=== PATIENT | female | born 1990 | race Two or more races ===

== ENCOUNTER 2018-08-19 22:50 | Inpatient (IN) ==
[2018-08-19 23:06] VITALS: BMI 37.5
[2018-08-19 23:23] LABS: BILIRUBIN,URINE NEGATIVE (NEGATIVE); BLOOD/HEMOGLOBIN,URINE NEGATIVE (NEGATIVE); GLUCOSE, URINE NEGATIVE (NEGATIVE); KETONES,URINE 2+ (NEGATIVE); LEUKOCYTE ESTERASE ,URINE 1+ (NEGATIVE); NITRITES,URINE NEGATIVE (NEGATIVE); PROTEIN,URINE 1+ (NEGATIVE); UROBILINOGEN,URINE NORMAL (NORMAL)
[2018-08-19 23:28] LABS: APPEARANCE,URINE SLIGHTLY HAZY (CLEAR); COLOR,URINE YELLOW (YELLOW)
[2018-08-19 23:37] LABS: BACTERIA,URINE TRACE /HPF (NEGATIVE); RBC,URINE 0-2 /HPF (NONE SEEN); SQUAMOUS EPITHELIAL CELL,UR MODERATE /HPF (NEGATIVE)
[2018-08-20] MEDS ORDERED: PITOCIN IVP ONE (02:15)
[2018-08-20] MEDS ORDERED: D5LR 1L W PITOCIN 10 UNITS/L 10 UNITS/1,000 ML BAG IV PRN (02:15)
[2018-08-20] MEDS ORDERED: NUBAIN INJ 200 MG VIAL MULTIDOSE IVP PRN (02:15)
[2018-08-20] MEDS ORDERED: FENTANYL INJ 100 mcg ONE (02:30)
[2018-08-20] MEDS ORDERED: LR 1000 ML IV 1,000 ML IV ONE (02:30)
[2018-08-20] MEDS ORDERED: XYLOCAINE 1 % (PLAIN) ONE (02:30)
[2018-08-20] MEDS ORDERED: D5 1/2 NS 1L W PITOCIN 20 UNITS/L 20 UNITS/1,000 ML BAG IV ONE (02:31)
[2018-08-20] MEDS ORDERED: NUBAIN INJ 10 ONE (02:31)
[2018-08-20] MEDS ORDERED: PITOCIN ONE (02:31)
[2018-08-20] MEDS ORDERED: NAROPIN EPIDURAL 0.2% + FENTANYL 90MCG 60 ML EPI ONE (02:31)
[2018-08-20] MEDS ORDERED: XYLOCAINE-MPF 1% ONE (02:31)
[2018-08-20] MEDS ORDERED: ADRENALINE CHL INJ ONE (02:31)
[2018-08-20 02:54] LABS: BASOPHILS # (AUTO) 0.1 X10^3/uL (0.0-0.1); BASOPHILS % (AUTO) 0.9 % (0.2-1.0); EOSINOPHILS % (AUTO) 0.3 % (0.9-2.9); HEMATOCRIT 37.1 % (36.0-47.0); HEMOGLOBIN 12.2 g/dL (12.0-16.0); LYMPHOCYTES # (AUTO) 2.3 X10^3/uL (1.3-2.9); LYMPHOCYTES % (AUTO) 18.4 % (21.0-51.0); MEAN CORPUSCULAR HEMOGLOBIN 26.9 pg (27.0-34.0); MEAN CORPUSCULAR VOLUME 81.3 fL (80.0-100.0); MEAN PLATELET VOLUME 9.8 fL (7.4-11.0); MONOCYTES # (AUTO) 0.6 x10^3/uL (0.3-0.8); MONOCYTES % (AUTO) 4.6 % (0.0-13.0); NEUTROPHILS # (AUTO) 9.5 x10^3/uL (2.2-4.8); NEUTROPHILS % (AUTO) 75.8 % (42.0-75.0); PLATELET COUNT 291 X10^3/uL (150.0-450.0); RED BLOOD COUNT 4.56 X10^6/uL (3.5-5.4); RED CELL DISTRIBUTION WIDTH 14.7 % (11.6-16.5); WHITE BLOOD COUNT 12.5 X10^3/uL (3.6-10.0)
[2018-08-20 02:59] LABS: BLOOD UREA NITROGEN 13 mg/dL (7-18); CALCIUM 8.7 mg/dL (8.5-10.1); CARBON DIOXIDE 17.7 mmol/L (21-32); CHLORIDE 104 mmol/L (98-107); CREATININE 0.74 mg/dL (0.55-1.02); SODIUM 136 mmol/L (136-145); eGFR NON BLACK RACES > 60 (>60)
[2018-08-20] MEDS ORDERED: D5 1/2 NS 1000 ML 1,000 ML IV SCH (03:00)
[2018-08-20] MEDS ORDERED: DERMOPLAST SPRAY TOP PRN (08:42)
[2018-08-20] MEDS ORDERED: D5 1/2 NS 1000 ML 1,000 ML with PITOCIN 20 UNITS IV SCH ×2 (09:00)
[2018-08-20] MEDS ORDERED: ADACEL or BOOSTRIX TDaP VACCINE IM ONE (09:25)
[2018-08-20] MEDS: MOTRIN TAB 800 MG PO PRN (15:45)
[2018-08-21 05:24] LABS: HEMATOCRIT 33.3 % (36.0-47.0); HEMOGLOBIN 10.8 g/dL (12.0-16.0)
[2018-08-21] MEDS: MOTRIN TAB 800 MG PO PRN ×2 (08:22→17:17)
[2018-08-22] MEDS: MOTRIN TAB 800 MG PO PRN ×2 (01:17→09:16)
[2018-08-22 12:06] VITALS: BP 123/82
== END 2018-08-22 13:10 | disposition home or self-care (01) | DRG 807 ==
LOC: ER 22:53 → LD 08-20 02:15 → MED/SURG 08-20 08:57
PROVIDERS: ADMIT Obstetrics & Gynecology Obstetrics; ATTEND Obstetrics & Gynecology Obstetrics
DX: Z23 Encounter for immunization; O80 Encounter for full-term uncomplicated delivery; Z37.0 Single live birth; Z3A.39 39 weeks gestation of pregnancy
CPT/HCPCS: 36415; 59409; 80048; 81001; 85014; 85018; 85025; 86592; 86850; 86900; 86901; 90715; 96365; 99284; A4216; A4222; J0171; J2300; J2590; J3010; J7120; S5010